=== PATIENT | male | born 1975 | race Caucasian/White ===

== ENCOUNTER 2017-01-26 00:25 | Emergency (ER) | payer OTHER | END 2017-01-26 04:11 | disposition home or self-care (01) | LOC: ER1 00:25 | DX: S82.142A Displaced bicondylar fracture of left tibia, initial encounter for closed fracture (principal); W19.XXXA Unspecified fall, initial encounter; Y92.149 Unspecified place in prison as the place of occurrence of the external cause | CPT/HCPCS: 29105; 73564; 73590; 73610; 96372; 99283; J2270 ==

== ENCOUNTER → 2017-01-27 | Outpatient (CLI) | payer OTHER ==
[~2017-01-27] MED LIST: LOVENOX SY30 MG/0.3 SQ; METOPROLOL TART25 MG PO; NORCO 10-325 T1 EACH PO
== END ==
LOC: KOH-I 12:38
DX: S82.202A Unspecified fracture of shaft of left tibia, initial encounter for closed fracture (principal); S82.252A Displaced comminuted fracture of shaft of left tibia, initial encounter for closed fracture
CPT/HCPCS: 73700

== ENCOUNTER 2017-01-28 10:01 | Observation (INO) | payer OTHER ==
[~2017-01-28] VITALS: Ht 182.9 cm; Wt 122.5 kg
[2017-01-28 10:41] LABS: HEMOGLOBIN 14.9 gm/dl (14.0-17.5); RED BLOOD COUNT 4.92 M/UL (4.20-5.50); WHITE BLOOD COUNT 10.1 K/UL (4.5-11.0)
[2017-01-28 10:56] LABS: BUN/CREATININE RATIO 13 (0-10)
[2017-01-29 06:04] LABS: HEMOGLOBIN 13.2 gm/dl (14.0-17.5); WHITE BLOOD COUNT 10.4 K/UL (4.5-11.0)
[2017-01-29 06:09] LABS: RED BLOOD COUNT 4.32 M/UL (4.20-5.50)
[2017-01-29 06:19] LABS: BUN/CREATININE RATIO 12 (0-10)
[2017-01-29] MEDS ORDERED: LOVENOX SY30 MG/0.3 SQ (10:03)
[2017-01-29] MEDS ORDERED: METOPROLOL TART25 MG PO (10:03)
[2017-01-29] MEDS ORDERED: NORCO 10-325 T1 EACH PO (10:04)
== END 2017-01-29 11:16 | disposition home or self-care (01) ==
LOC: OR 10:01 → M/S 10:02 → OR 13:15 → M/S 19:04 → OR 19:04 → M/S 01-29 11:16
PROVIDERS: ADMIT Orthopaedic Surgery
PROC: 0SQD0ZZ Repair Left Knee Joint, Open Approach (ICD-10-PCS; 2017-01-28)
PROC: 0QSH04Z Reposition Left Tibia with Internal Fixation Device, Open Approach (ICD-10-PCS; principal; 2017-01-28 13:15)
DX: S82.122A Displaced fracture of lateral condyle of left tibia, initial encounter for closed fracture (principal); S83.282A Other tear of lateral meniscus, current injury, left knee, initial encounter; I10 Essential (primary) hypertension; K21.9 Gastro-esophageal reflux disease without esophagitis; Z83.3 Family history of diabetes mellitus; Z82.49 Family history of ischemic heart disease and other diseases of the circulatory system; Z98.890 Other specified postprocedural states; W08.XXXA Fall from other furniture, initial encounter
CPT/HCPCS: 36415; 71010; 73590; 76000; 80048; 82550; 82553; 83735; 84439; 84443; 84484; 85025; 93005; C1713; G0378; J0171; J0690; J1100; J1650; J2250; J2270; J2370; J2405; J2795; J3010; J7120